=== PATIENT | female | born 1955 | race Caucasian/White ===

== ENCOUNTER 2020-12-24 11:23 | Inpatient (IN) ==
[2020-12-24] MEDS ORDERED: Ketorolac 30 MG/ML VIAL IVP ONE (14:04)
[2020-12-24] MEDS ORDERED: Naloxone 0.4 MG/ML INJ IVP PRN (14:06)
[2020-12-24] MEDS ORDERED: Ketorolac 30 MG/ML VIAL IVP PRN (14:06)
[2020-12-24] MEDS ORDERED: Ondansetron 4 MG/2 ML VIAL IVP PRN (14:06)
[2020-12-24] MEDS: MetroNIDAZOLE 500 MG/100 ML 500 MG/100 ML BAG IVPB SCH (14:53)
[2020-12-24] MEDS: 0.9 % Sodium Chloride w KCl 20 MEQ/1,000 ML MLS IVC SCH (16:41)
[2020-12-24] MEDS: Acetaminophen 325 MG TABLET PO PRN (21:01)
[2020-12-24] MEDS: traZODone 50 MG TABLET PO SCH (21:22)
[2020-12-24] MEDS: Famotidine 20 MG TABLET PO SCH (21:22)
[2020-12-25] MEDS: 0.9 % Sodium Chloride w KCl 20 MEQ/1,000 ML MLS IVC SCH (00:44)
[2020-12-25] MEDS: MetroNIDAZOLE 500 MG/100 ML 500 MG/100 ML BAG IVPB SCH ×3 (00:45→14:49)
[2020-12-25] MEDS: Nystatin POWDER 30 GM BOTTLE TP SCH ×3 (07:32→20:09)
[2020-12-25] MEDS: Magnesium Oxide 400 MG TABLET PO SCH (08:13)
[2020-12-25] MEDS: lisinopriL 20 MG TABLET PO SCH (08:14)
[2020-12-25] MEDS: Cyanocobalamin (B-12) 1,000 MCG TABLET PO SCH (08:14)
[2020-12-25] MEDS: Cholecalciferol (D-3) 1,000 UNIT (25MCG) TABLET PO SCH (08:14)
[2020-12-25] MEDS: Ascorbic Acid 500 MG TABLET PO SCH (08:15)
[2020-12-25] MEDS: Vitamin E 200 UNIT (90MG) CAPSULE PO SCH (08:15)
[2020-12-25] MEDS ORDERED: NON-FORMULARY MEDICATION 1 EACH EACH (Turmeric Root Extract [Turmeric] 500 MG) PO SCH (09:00)
[2020-12-25 09:09] LABS: Hematocrit 30.2 % (35.3-44.9); Hemoglobin 8.9 g/dL (11.5-15.4); Mean Corpuscular HGB Conc 29.5 g/dL (31.6-35.5); Mean Corpuscular Hemoglobin 24.8 pg (28.0-33.3); Mean Corpuscular Volume 84.1 fL (83.0-100.0); Mean Platelet Volume 8.8 fL (9.4-12.4); Platelet Count 372 K/mcL (140-400); Red Blood Count 3.59 M/mcL (3.82-4.97); Red Cell Distribution Width 15.2 % (11.5-14.5); White Blood Count 8.4 K/mcL (4.3-11.1)
[2020-12-25] MEDS: Famotidine 20 MG TABLET PO SCH ×3 (09:17→15:50)
[2020-12-25 09:21] LABS: BUN/Creatinine Ratio 12 (6-26); Blood Urea Nitrogen 8 mg/dL (8-23); Carbon Dioxide 21 mEq/L (23-29); Chloride 107 mEq/L (98-107); Glucose 105 mg/dL (70-105); Osmolality,Calculated 281 (280-300); Potassium 3.6 mEq/L (3.5-5.1); Sodium 136 mEq/L (136-145); eGFR For African Americans > 60 (> 60); eGFR For Non-African Americans > 60 (> 60)
[2020-12-25 09:30] LABS: Basophils # 0.1 K/mcL (0.0-0.2); Eosinophils # 0.3 K/mcL (0.0-0.6); Lymphocytes # 0.5 K/mcL (0.6-4.6); Monocytes # 0.9 K/mcL (0.0-1.3); Neutrophils # 6.4 K/mcL (1.6-8.9)
[2020-12-25 09:31] LABS: Platelet Estimate Normal (Normal); Reactive Lymphocytes Present (Not Present)
[2020-12-25] MEDS: Acetaminophen 325 MG TABLET PO PRN (14:48)
[2020-12-25] MEDS: 0.9 % Sodium Chloride 1,000 ML IVC SCH ×2 (15:29→15:50)
[2020-12-25 18:29] LABS: Bilirubin,Urine Negative (Negative); Blood,Urine Negative (Negative); Clarity,Urine Turbid (Clear); Color,Urine Yellow (Yellow); Glucose,Urine (UA) Normal (Normal); Ketones,Urine 20 mg/dL (Negative); Leukocyte Esterase,Urine Trace (Negative); Mucus,Urine Few per lpf (None-Few); Nitrite,Urine Negative (Negative); PH,Urine 5.5 pH Units (5.0-8.0); Protein,Urine 30 mg/dL (Neg-Trace); RBC,Urine 0-3 per hpf (0-3); Specific Gravity,Urine 1.029 (1.010-1.025); Squamous Epithelial Cell,Urine Few per hpf (None-Few); Urobilinogen,Urine Normal (Normal); WBC,Urine 0-3 per hpf (0-3)
[2020-12-25] MEDS: traZODone 50 MG TABLET PO SCH (20:18)
[2020-12-26] MEDS: MetroNIDAZOLE 500 MG/100 ML 500 MG/100 ML BAG IVPB SCH ×3 (03:23→15:35)
[2020-12-26 05:58] LABS: Basophils % 0.3 %; Eosinophils # 0.2 K/mcL (0.0-0.6); Hematocrit 25.3 % (35.3-44.9); Hemoglobin 7.6 g/dL (11.5-15.4); Immature Granulocytes % 1.8 % (0-4); Lymphocytes # 1.1 K/mcL (0.6-4.6); Lymphocytes % 15.1 %; Mean Corpuscular Hemoglobin 25.1 pg (28.0-33.3); Mean Corpuscular Volume 83.5 fL (83.0-100.0); Mean Platelet Volume 9.5 fL (9.4-12.4); Monocytes # 1.2 K/mcL (0.0-1.3); Neutrophils # 4.6 K/mcL (1.6-8.9); Platelet Count 360 K/mcL (140-400); Red Blood Count 3.03 M/mcL (3.82-4.97); Red Cell Distribution Width 15.3 % (11.5-14.5); Segmented Neutrophils % 63.8 %; White Blood Count 7.2 K/mcL (4.3-11.1)
[2020-12-26 06:16] LABS: BUN/Creatinine Ratio 9 (6-26); Blood Urea Nitrogen 5 mg/dL (8-23); Calcium 7.9 mg/dL (8.6-10.3); Carbon Dioxide 20 mEq/L (23-29); Chloride 108 mEq/L (98-107); Glucose 91 mg/dL (70-105); Magnesium 1.7 mg/dL (1.6-2.6); Osmolality,Calculated 277 (280-300); Potassium 3.6 mEq/L (3.5-5.1); Sodium 135 mEq/L (136-145); eGFR For African Americans > 60 (> 60); eGFR For Non-African Americans > 60 (> 60)
[2020-12-26 06:17] LABS: Platelet Estimate Normal (Normal)
[2020-12-26] MEDS: Famotidine 20 MG TABLET PO SCH ×2 (08:36→15:35)
[2020-12-26] MEDS: Ascorbic Acid 500 MG TABLET PO SCH (08:36)
[2020-12-26] MEDS: Magnesium Oxide 400 MG TABLET PO SCH (08:37)
[2020-12-26] MEDS: Cholecalciferol (D-3) 1,000 UNIT (25MCG) TABLET PO SCH (08:37)
[2020-12-26] MEDS: Cyanocobalamin (B-12) 1,000 MCG TABLET PO SCH (08:37)
[2020-12-26] MEDS: lisinopriL 20 MG TABLET PO SCH (08:37)
[2020-12-26] MEDS: Nystatin POWDER 30 GM BOTTLE TP SCH ×2 (08:38→20:15)
[2020-12-26] MEDS: Vitamin E 200 UNIT (90MG) CAPSULE PO SCH (08:38)
[2020-12-26 14:12] LABS: Hematocrit 27.6 % (35.3-44.9); Hemoglobin 8.4 g/dL (11.5-15.4)
[2020-12-26] MEDS: Pantoprazole 40 MG VIAL IVP SCH (16:47)
[2020-12-26] MEDS: traZODone 50 MG TABLET PO SCH (20:14)
[2020-12-26 21:44] LABS: Hematocrit 28.5 % (35.3-44.9); Hemoglobin 8.6 g/dL (11.5-15.4)
[2020-12-27] MEDS: MetroNIDAZOLE 500 MG/100 ML 500 MG/100 ML BAG IVPB SCH ×3 (00:04→16:03)
[2020-12-27] MEDS: Pantoprazole 40 MG VIAL IVP SCH ×2 (05:16→17:11)
[2020-12-27] MEDS: lisinopriL 20 MG TABLET PO SCH (08:28)
[2020-12-27] MEDS: Vitamin E 200 UNIT (90MG) CAPSULE PO SCH (08:29)
[2020-12-27] MEDS: Magnesium Oxide 400 MG TABLET PO SCH (08:29)
[2020-12-27] MEDS: Ascorbic Acid 500 MG TABLET PO SCH (08:29)
[2020-12-27] MEDS: Cyanocobalamin (B-12) 1,000 MCG TABLET PO SCH (08:29)
[2020-12-27] MEDS: Cholecalciferol (D-3) 1,000 UNIT (25MCG) TABLET PO SCH (08:29)
[2020-12-27] MEDS: Famotidine 20 MG TABLET PO SCH ×2 (08:29→16:03)
[2020-12-27] MEDS: Nystatin POWDER 30 GM BOTTLE TP SCH ×2 (08:30→22:16)
[2020-12-27 09:33] LABS: Basophils % 0.4 %; Eosinophils # 0.2 K/mcL (0.0-0.6); Eosinophils % 3.5 %; Hematocrit 29.1 % (35.3-44.9); Hemoglobin 8.8 g/dL (11.5-15.4); Immature Granulocytes % 2.8 % (0-4); Lymphocytes # 1.2 K/mcL (0.6-4.6); Lymphocytes % 18.1 %; Mean Corpuscular HGB Conc 30.2 g/dL (31.6-35.5); Mean Corpuscular Hemoglobin 24.8 pg (28.0-33.3); Monocytes # 0.9 K/mcL (0.0-1.3); Neutrophils # 4.2 K/mcL (1.6-8.9); Platelet Count 497 K/mcL (140-400); Red Blood Count 3.55 M/mcL (3.82-4.97); Red Cell Distribution Width 15.2 % (11.5-14.5); Segmented Neutrophils % 62.2 %; White Blood Count 6.8 K/mcL (4.3-11.1)
[2020-12-27 09:50] LABS: BUN/Creatinine Ratio 4 (6-26); Blood Urea Nitrogen 2 mg/dL (8-23); Calcium 8.2 mg/dL (8.6-10.3); Carbon Dioxide 21 mEq/L (23-29); Chloride 104 mEq/L (98-107); Glucose 113 mg/dL (70-105); Osmolality,Calculated 275 (280-300); Potassium 3.1 mEq/L (3.5-5.1); Sodium 134 mEq/L (136-145); eGFR For African Americans > 60 (> 60); eGFR For Non-African Americans > 60 (> 60)
[2020-12-27 09:58] LABS: Platelet Estimate Normal (Normal)
[2020-12-27] MEDS: traZODone 50 MG TABLET PO SCH (22:16)
[2020-12-28] MEDS: MetroNIDAZOLE 500 MG/100 ML 500 MG/100 ML BAG IVPB SCH ×4 (00:05→23:24)
[2020-12-28 04:20] LABS: Basophils # 0.1 K/mcL (0.0-0.2); Basophils % 0.6 %; Eosinophils # 0.2 K/mcL (0.0-0.6); Eosinophils % 2.6 %; Hematocrit 30.5 % (35.3-44.9); Hemoglobin 9.2 g/dL (11.5-15.4); Immature Granulocytes % 2.6 % (0-4); Lymphocytes # 1.9 K/mcL (0.6-4.6); Lymphocytes % 21.6 %; Mean Corpuscular HGB Conc 30.2 g/dL (31.6-35.5); Mean Corpuscular Volume 82.9 fL (83.0-100.0); Mean Platelet Volume 10.5 fL (9.4-12.4); Monocytes # 1.2 K/mcL (0.0-1.3); Monocytes % 13.9 %; Neutrophils # 5.2 K/mcL (1.6-8.9); Platelet Count 431 K/mcL (140-400); Red Blood Count 3.68 M/mcL (3.82-4.97); Red Cell Distribution Width 15.7 % (11.5-14.5); Segmented Neutrophils % 58.7 %; White Blood Count 8.9 K/mcL (4.3-11.1)
[2020-12-28 04:38] LABS: BUN/Creatinine Ratio 3 (6-26); Blood Urea Nitrogen 2 mg/dL (8-23); Calcium 8.1 mg/dL (8.6-10.3); Carbon Dioxide 22 mEq/L (23-29); Chloride 104 mEq/L (98-107); Glucose 94 mg/dL (70-105); Osmolality,Calculated 274 (280-300); Potassium 3.6 mEq/L (3.5-5.1); Sodium 134 mEq/L (136-145); eGFR For African Americans > 60 (> 60); eGFR For Non-African Americans > 60 (> 60)
[2020-12-28] MEDS: Pantoprazole 40 MG VIAL IVP SCH ×2 (05:45→18:18)
[2020-12-28] MEDS: Famotidine 20 MG TABLET PO SCH ×2 (09:09→17:21)
[2020-12-28] MEDS: Cyanocobalamin (B-12) 1,000 MCG TABLET PO SCH (09:10)
[2020-12-28] MEDS: Magnesium Oxide 400 MG TABLET PO SCH (09:10)
[2020-12-28] MEDS: Vitamin E 200 UNIT (90MG) CAPSULE PO SCH (09:11)
[2020-12-28] MEDS: lisinopriL 20 MG TABLET PO SCH (09:11)
[2020-12-28] MEDS: Cholecalciferol (D-3) 1,000 UNIT (25MCG) TABLET PO SCH (09:11)
[2020-12-28] MEDS: Ascorbic Acid 500 MG TABLET PO SCH (09:11)
[2020-12-28] MEDS: Nystatin POWDER 30 GM BOTTLE TP SCH ×2 (15:48→21:41)
[2020-12-28] MEDS ORDERED: SODIUM CHLORIDE/NAHCO3/KCL/PEG 4,000 ML SOLN.RECON PO ONE (17:00)
[2020-12-28] MEDS: traZODone 50 MG TABLET PO SCH (21:41)
[2020-12-29 04:36] LABS: Basophils % 0.5 %; Eosinophils # 0.2 K/mcL (0.0-0.6); Eosinophils % 1.7 %; Hematocrit 28.5 % (35.3-44.9); Hemoglobin 8.7 g/dL (11.5-15.4); Immature Granulocytes % 3.6 % (0-4); Lymphocytes # 1.8 K/mcL (0.6-4.6); Mean Corpuscular HGB Conc 30.5 g/dL (31.6-35.5); Mean Corpuscular Hemoglobin 24.5 pg (28.0-33.3); Mean Corpuscular Volume 80.3 fL (83.0-100.0); Mean Platelet Volume 9.4 fL (9.4-12.4); Monocytes # 1.2 K/mcL (0.0-1.3); Monocytes % 13.7 %; Neutrophils # 5.4 K/mcL (1.6-8.9); Platelet Count 551 K/mcL (140-400); Red Blood Count 3.55 M/mcL (3.82-4.97); Red Cell Distribution Width 15.6 % (11.5-14.5); Segmented Neutrophils % 60.5 %; White Blood Count 8.9 K/mcL (4.3-11.1)
[2020-12-29 04:51] LABS: BUN/Creatinine Ratio 4 (6-26); Blood Urea Nitrogen 2 mg/dL (8-23); Calcium 8.4 mg/dL (8.6-10.3); Carbon Dioxide 25 mEq/L (23-29); Chloride 102 mEq/L (98-107); Glucose 103 mg/dL (70-105); Osmolality,Calculated 276 (280-300); Potassium 3.3 mEq/L (3.5-5.1); Sodium 135 mEq/L (136-145); eGFR For African Americans > 60 (> 60); eGFR For Non-African Americans > 60 (> 60)
[2020-12-29] MEDS: Pantoprazole 40 MG VIAL IVP SCH ×2 (05:52→17:46)
[2020-12-29] MEDS: MetroNIDAZOLE 500 MG/100 ML 500 MG/100 ML BAG IVPB SCH ×2 (09:26→17:46)
[2020-12-29] MEDS ORDERED: Lidocaine -MPF 2% 5 ML VIAL INFILT ONE (09:47)
[2020-12-29] MEDS ORDERED: *HR* Propofol 200 MG/20 ML VIAL IVP ONE ×3 (09:47→12:39)
[2020-12-29] MEDS: Nystatin POWDER 30 GM BOTTLE TP SCH ×2 (09:49→19:51)
[2020-12-29 11:20] LABS: Adenovirus Not Detected (Not Detect); Bordetella Pertussis Not Detected (Not Detect); Chlamydophila pneumoniae Not Detected (Not Detect); Coronavirus 229E Not Detected (Not Detect); Coronavirus HKU1 Not Detected (Not Detect); Coronavirus NL63 Not Detected (Not Detect); Coronavirus OC43 Not Detected (Not Detect); Human Metapneumovirus Not Detected (Not Detect); Human Rhinovirus/Enterovirus Not Detected (Not Detect); Influenza A Subtype 2009 H1 Not Detected (Not Detect); Influenza B Not Detected (Not Detect); Mycoplasma pneumoniae Not Detected (Not Detect); Parainfluenza Virus 1 Not Detected (Not Detect); Parainfluenza Virus 2 Not Detected (Not Detect); Parainfluenza Virus 3 Not Detected (Not Detect); Parainfluenza Virus 4 Not Detected (Not Detect); Respiratory Syncytial Virus Not Detected (Not Detect); SARS-CoV-2 Not Detected (Not Detect)
[2020-12-29] MEDS: Famotidine 20 MG TABLET PO SCH ×2 (12:19→17:48)
[2020-12-29] MEDS: Cyanocobalamin (B-12) 1,000 MCG TABLET PO SCH (14:47)
[2020-12-29] MEDS: Vitamin E 200 UNIT (90MG) CAPSULE PO SCH (14:47)
[2020-12-29] MEDS: Ascorbic Acid 500 MG TABLET PO SCH (14:47)
[2020-12-29] MEDS: Magnesium Oxide 400 MG TABLET PO SCH (14:47)
[2020-12-29] MEDS: lisinopriL 20 MG TABLET PO SCH (14:47)
[2020-12-29] MEDS: Cholecalciferol (D-3) 1,000 UNIT (25MCG) TABLET PO SCH (14:47)
[2020-12-29] MEDS: MethylPREDNISolone 40 MG/ML VIAL IVP SCH (17:45)
[2020-12-29] MEDS: traZODone 50 MG TABLET PO SCH (21:40)
[2020-12-30] MEDS: MethylPREDNISolone 40 MG/ML VIAL IVP SCH ×4 (00:12→23:04)
[2020-12-30] MEDS: MetroNIDAZOLE 500 MG/100 ML 500 MG/100 ML BAG IVPB SCH ×2 (00:13→07:56)
[2020-12-30] MEDS: Pantoprazole 40 MG VIAL IVP SCH (05:21)
[2020-12-30 05:54] LABS: Basophils % 0.3 %; Hematocrit 29.3 % (35.3-44.9); Hemoglobin 8.9 g/dL (11.5-15.4); Immature Granulocytes % 3.7 % (0-4); Lymphocytes # 0.8 K/mcL (0.6-4.6); Lymphocytes % 8.7 %; Mean Corpuscular HGB Conc 30.4 g/dL (31.6-35.5); Mean Corpuscular Hemoglobin 24.4 pg (28.0-33.3); Mean Corpuscular Volume 80.3 fL (83.0-100.0); Mean Platelet Volume 8.7 fL (9.4-12.4); Monocytes # 0.3 K/mcL (0.0-1.3); Monocytes % 2.8 %; Neutrophils # 7.7 K/mcL (1.6-8.9); Platelet Count 671 K/mcL (140-400); Red Blood Count 3.65 M/mcL (3.82-4.97); Red Cell Distribution Width 15.6 % (11.5-14.5); Segmented Neutrophils % 84.5 %; White Blood Count 9.1 K/mcL (4.3-11.1)
[2020-12-30 06:10] LABS: BUN/Creatinine Ratio 6 (6-26); Blood Urea Nitrogen 3 mg/dL (8-23); Calcium 8.5 mg/dL (8.6-10.3); Carbon Dioxide 26 mEq/L (23-29); Chloride 105 mEq/L (98-107); Glucose 150 mg/dL (70-105); Osmolality,Calculated 287 (280-300); Potassium 3.9 mEq/L (3.5-5.1); Sodium 139 mEq/L (136-145); eGFR For African Americans > 60 (> 60); eGFR For Non-African Americans > 60 (> 60)
[2020-12-30 06:29] LABS: Hepatitis B Surface Antigen Nonreactive (Nonreactive)
[2020-12-30 06:58] LABS: Hepatitis B Core IgM Nonreactive (Nonreactive)
[2020-12-30 06:59] LABS: Hepatitis C Virus Antibody Nonreactive (Nonreactive)
[2020-12-30 07:00] LABS: Hepatitis A Antibody IgM Nonreactive (Nonreactive)
[2020-12-30] MEDS: Famotidine 20 MG TABLET PO SCH ×2 (07:54→15:47)
[2020-12-30] MEDS: lisinopriL 20 MG TABLET PO SCH (09:14)
[2020-12-30] MEDS: Ascorbic Acid 500 MG TABLET PO SCH (09:14)
[2020-12-30] MEDS: Cholecalciferol (D-3) 1,000 UNIT (25MCG) TABLET PO SCH (09:14)
[2020-12-30] MEDS: Vitamin E 200 UNIT (90MG) CAPSULE PO SCH (09:15)
[2020-12-30] MEDS: Magnesium Oxide 400 MG TABLET PO SCH (09:17)
[2020-12-30] MEDS: Cyanocobalamin (B-12) 1,000 MCG TABLET PO SCH (09:17)
[2020-12-30] MEDS: Nystatin POWDER 30 GM BOTTLE TP SCH ×2 (09:55→21:41)
[2020-12-30] MEDS: traZODone 50 MG TABLET PO SCH (21:40)
[2020-12-31 06:12] LABS: Hematocrit 28.3 % (35.3-44.9); Hemoglobin 8.4 g/dL (11.5-15.4); Mean Corpuscular HGB Conc 29.7 g/dL (31.6-35.5); Mean Corpuscular Hemoglobin 23.9 pg (28.0-33.3); Mean Corpuscular Volume 80.6 fL (83.0-100.0); Mean Platelet Volume 8.7 fL (9.4-12.4); Platelet Count 759 K/mcL (140-400); Red Blood Count 3.51 M/mcL (3.82-4.97); Red Cell Distribution Width 15.7 % (11.5-14.5)
[2020-12-31 06:33] LABS: BUN/Creatinine Ratio 16 (6-26); Blood Urea Nitrogen 8 mg/dL (8-23); Calcium 8.3 mg/dL (8.6-10.3); Carbon Dioxide 27 mEq/L (23-29); Chloride 104 mEq/L (98-107); Glucose 222 mg/dL (70-105); Osmolality,Calculated 289 (280-300); Potassium 3.7 mEq/L (3.5-5.1); Sodium 137 mEq/L (136-145); eGFR For African Americans > 60 (> 60); eGFR For Non-African Americans > 60 (> 60)
[2020-12-31 07:32] VITALS: BP 138/86
[2020-12-31] MEDS: Famotidine 20 MG TABLET PO SCH (08:25)
[2020-12-31] MEDS: lisinopriL 20 MG TABLET PO SCH (08:26)
[2020-12-31] MEDS: Ascorbic Acid 500 MG TABLET PO SCH (08:26)
[2020-12-31] MEDS: Cyanocobalamin (B-12) 1,000 MCG TABLET PO SCH (08:27)
[2020-12-31] MEDS: Vitamin E 200 UNIT (90MG) CAPSULE PO SCH (08:28)
[2020-12-31] MEDS: Magnesium Oxide 400 MG TABLET PO SCH (08:28)
[2020-12-31] MEDS: Cholecalciferol (D-3) 1,000 UNIT (25MCG) TABLET PO SCH (08:28)
[2020-12-31] MEDS: MethylPREDNISolone 40 MG/ML VIAL IVP SCH (08:29)
[2020-12-31] MEDS: Nystatin POWDER 30 GM BOTTLE TP SCH (08:38)
[2021-01-01 18:09] LABS: QuantiFERON Mitogen minus NIL 0.65 IU/mL
[2021-01-02 07:44] LABS: QuantiFERON NIL 0.01 IU/mL; QuantiFERON-TB Gold In-Tube NEGATIVE (Negative)
== END 2020-12-31 10:55 | disposition home or self-care (01) | DRG 385 ==
LOC: 3ANU → SUATTDRO 13:29
PROVIDERS: ADMIT Internal Medicine; ATTEND Family Medicine
PROC: ENDOCBX (2020-12-29 13:00)